=== PATIENT | male | born 1975 | race Caucasian/White ===

== ENCOUNTER → 2016-12-07 | Outpatient (CLI) | payer MEDICAID ==
[2016-12-07 09:51] LABS: CHLORIDE,CL 106 mmol/L (98-110); SODIUM,NA 138 mmol/L (136-146)
== END ==
LOC: MW.CHFP 09:06
PROVIDERS: ATTEND Physician Assistant
DX: R10.13 Epigastric pain (principal)
CPT/HCPCS: 36415; 80053; 85025; 85652; 87338

== ENCOUNTER → 2016-12-08 | Outpatient (CLI) | payer MEDICAID ==
[~2016-12-08] MED LIST: Iopamidol 755 MG/ML 500 ML Multipack Bottle IVPUSH STA
--- NOTE | 2016-12-08 15:31 | CT ---
CT of the abdomen and pelvis with contrast. HISTORY: Epigastric pain TECHNIQUE: Axial CT images were obtained of the abdomen and pelvis following administration of 100 m L of Isovue-370 without complication. Coronal and sagittal reconstructions obtained. FINDINGS: The lung bases are clear, no pleural effusion. The liver, spleen, adrenal glands, and pancreas appear normal. Gallbladder is normal. No bulky retro peritoneal lymphadenopathy or abdominal ascites. The kidneys enhance and function symmetrically with out evidence of obstructive uropathy. The large and small bowel are normal in caliber without evidence of obstruction. There is no pericol onic inflammation or stranding. The appendix appears normal. There is no bulky pelvic lymphadenopath y or free pelvic fluid. The urinary bladder is mostly decompressed. No suspicious osseous abnormalit ies identified. IMPRESSION: Unremarkable CT abdomen and pelvis.
== END ==
LOC: MW.DI 12:52
PROVIDERS: ATTEND Physician Assistant
DX: R10.13 Epigastric pain (principal)
CPT/HCPCS: 74177; 74177-26; 87338

== ENCOUNTER → 2017-01-07 | Outpatient (CLI) | payer MEDICAID ==
[2017-01-07 14:59] LABS: CHLORIDE,CL 106 mmol/L (98-110); SODIUM,NA 141 mmol/L (136-146)
== END ==
LOC: MW.CHFP 14:04
PROVIDERS: ATTEND Physician Assistant
DX: A04.8 Other specified bacterial intestinal infections (principal)
CPT/HCPCS: 36415; 80053; 82150; 83690

== ENCOUNTER → 2017-01-10 | Outpatient (CLI) | payer MEDICAID | LOC: MW.CHFP 10:36 | PROVIDERS: ATTEND Physician Assistant | DX: A04.8 Other specified bacterial intestinal infections (principal) | CPT/HCPCS: 87338 ==

== ENCOUNTER 2019-01-19 17:23 | Emergency (ER) | payer MEDICAID ==
[2019-01-19] MEDS ORDERED: Sodium Chloride 0.9% 1,000 ML IV ONE (19:09)
--- NOTE | 2019-01-19 19:09 | EDM.PDOC ---
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 Past medical history: As per history of present illness and as reviewed below otherwise noncontributory. Surgical history: As per history of present illness and as reviewed below otherwise noncontributory. Social history: No reported history of drug or alcohol abuse. Family history: As per history of present illness and as reviewed below otherwise noncontributory. Physical exam: HEENT: Atraumatic, normocephalic, pupils reactive, negative for conjunctival pallor or scleral icterus, mucous membranes moist, throat clear, neck supple, nontender, trachea midline. Lungs: Clear to auscultation, breath sounds equal bilaterally, chest nontender. Heart: S1S2, regular, negative for clicks, rubs, or JVD. Abdomen: Soft, nondistended, nontender. Negative for masses or hepatosplenomegaly. Negative for costovertebral tenderness. Pelvis: Stable nontender. Genitourinary: Deferred. Rectal: Deferred. Extremities: Atraumatic, negative for cords or calf pain. Neurovascular unremarkable. Neuro: Awake, alert, oriented. Cranial nerves II through XII unremarkable. Cerebellum unremarkable. Motor and sensory unremarkable throughout. Exam nonfocal. Diagnostics: [CBC CMP troponin EKG Chest 1 view Orthostatic vitals Therapeutics: normal saline Lifestyle modifications i.e. good diet decrease monster drinks decrease smoking likely diesel fumes from the [employer] operation all contribute ] Impression: Medical screening exam ] Worried well Definitive disposition and diagnosis as appropriate pending reevaluation and review of above. - Related Data Allergies Allergy/AdvReac Type Severity Reaction Status Date / Time No Known Allergies Allergy Verified 01/19/19 18:19 Home Meds: Home Meds . [No Known Home Meds] 01/19/19 [History] Past Medical History HEENT History: Reports: None Cardiovascular History: Reports: None Respiratory History: Reports: None Gastrointestinal History: Reports: None Genitourinary History: Reports: None Musculoskeletal History: Reports: None Neurological History: Reports: None Psychiatric History: Reports: None Endocrine/Metabolic History: Reports: None Hematologic History: Reports: None Immunologic History: Reports: None Oncologic (Cancer) History: Reports: None Dermatologic History: Reports: None - Infectious Disease History Infectious Disease History: Reports: Chicken Pox - Past Surgical History Head Surgeries/Procedures: Reports: None Social & Family History - Tobacco Use Smoking Status *Q: Current Every Day Smoker Years of Tobacco use: 20 Packs/Tins Daily: 0.5 - Caffeine Use Caffeine Use: Reports: Coffee, Energy Drinks - Recreational Drug Use Recreational Drug Use: No ED ROS GENERAL - Review of Systems Review Of Systems: See Below ED EXAM, GENERAL - Physical Exam Exam: See Below Course - Vital Signs Last Recorded V/S: Last Vital Signs Temp 98.1 F 01/19/19 18:13 Pulse 67 01/19/19 20:04 Resp 18 01/19/19 20:04 BP 128/77 01/19/19 20:04 Pulse Ox 100 01/19/19 20:04 Orthostatic Blood Pressure [ 124/82 Standing] Orthostatic Blood Pressure [ 123/81 Sitting] Orthostatic Blood Pressure [ 128/77 Supine] - Orders/Labs/Meds Orders: Active Orders 24 hr Category Date Time Status EKG Documentation Completion [RC] STAT Care 01/19/19 19:07 Active Orthostatic Vital Signs [RC] ASDIRECTED Care 01/19/19 19:10 Active Labs: Laboratory Tests 01/19/19 01/19/19 01/19/19 Range/Units 18:55 18:55 19:40 WBC 9.51 (4.0-11.0) K/uL RBC 5.16 (4.50-5.90) M/uL Hgb 15.6 (13.0-17.0) g/dL Hct 44.3 (38.0-50.0) % MCV 85.9 (80.0-98.0) fL MCH 30.2 (27.0-32.0) pg MCHC 35.2 (31.0-37.0) g/dL RDW Std Deviation 41.7 (28.0-62.0) fl RDW Coeff of Jose 13 (11.0-15.0) % Plt Count 255 (150-400) K/uL MPV 9.00 (7.40-12.00) fL Neut % (Auto) 72.2 (48.0-80.0) % Lymph % (Auto) 19.5 (16.0-40.0) % [place] % (Auto) 5.3 (0.0-15.0) % Eos % (Auto) 2.7 (0.0-7.0) % Baso % (Auto) 0.3 (0.0-1.5) % Neut # (Auto) 6.9 H (1.4-5.7) K/uL Lymph # (Auto) 1.9 (0.6-2.4) K/uL [place] # (Auto) 0.5 (0.0-0.8) K/uL Eos # (Auto) 0.3 (0.0-0.7) K/uL Baso # (Auto) 0.0 (0.0-0.1) K/uL Nucleated RBC % 0.0 /100WBC Nucleated RBCs # 0 K/uL Sodium 137 (136-148) mmol/L Potassium 4.9 (3.5-5.1) mmol/L Chloride 102 (98-107) mmol/L Carbon Dioxide 28.6 (21.0-32.0) mmol/L BUN 19 H (7.0-18.0) mg/dL Creatinine 1.0 (0.8-1.3) mg/dL Est Cr Clr Drug Dosing 102.49 mL/min Estimated GFR (MDRD) > 60.0 ml/min Glucose 128 H (74-106) mg/dL Calcium 9.3 (8.5-10.1) mg/dL Total Bilirubin 0.4 (0.2-1.0) mg/dL AST 23 (15-37) IU/L ALT 28 (14-63) IU/L Alkaline Phosphatase 81 (46-116) U/L Troponin I < 0.050 (0.000-0.056) ng/mL Total Protein 7.9 (6.4-8.2) g/dL Albumin 4.3 (3.4-5.0) g/dL Globulin 3.6 (2.6-4.0) g/dL Albumin/Globulin Ratio 1.2 (0.9-1.6) Urine Color DARK YELLOW Urine Appearance SLT CLOUDY Urine pH 6.0 (5.0-8.0) Ur Specific [place] >= 1.030 (1.001-1.035) Urine Protein NEGATIVE (NEGATIVE) mg/dL Urine Glucose (UA) NEGATIVE (NEGATIVE) mg/dL Urine Ketones NEGATIVE (NEGATIVE) mg/dL Urine Occult Blood NEGATIVE (NEGATIVE) Urine Nitrite NEGATIVE (NEGATIVE) Urine Bilirubin NEGATIVE (NEGATIVE) Urine Urobilinogen 0.2 (<2.0) EU/dL Ur Leukocyte Esterase NEGATIVE (NEGATIVE) Meds: Medications Discontinued Medications Generic Name Dose Route Start Last Admin Trade Name Freq PRN Reason Stop Dose Admin Sodium Chloride 1,000 mls @ 999 mls/hr 01/19/19 19:09 01/19/19 19:18 Normal Saline IV 01/19/19 20:09 Not Given STAT ONE Departure - Departure Time of Disposition: 20:10 Disposition: Home, Self-Care 01 Condition: Good Clinical Impression: Encounter for medical screening examination - Discharge Information Referrals: PCP,None [Primary Care Provider] - Forms: ED Department Discharge Additional Instructions: The following information is given to patients seen in the emergency department who are being discharged to home. This information is to outline your options for follow-up care. We provide all patients seen in our emergency department with a follow-up referral. The need for follow-up, as well as the timing and circumstances, are variable depending upon the specifics of your emergency department visit. If you don't have a primary care physician on staff, we will provide you with a referral. We always advise you to contact your personal physician following an emergency department visit to inform them of the circumstance of the visit and for follow-up with them and/or the need for any referrals to a consulting specialist. The emergency department will also refer you to a specialist when appropriate. This referral assures that you have the opportunity for follow-up care with a specialist. All of these measure are taken in an effort to provide you with optimal care, which includes your follow-up. Under all circumstances we always encourage you to contact your private physician who remains a resource for coordinating your care. When calling for follow-up care, please make the office aware that this follow-up is from your recent emergency room visit. If for any reason you are refused follow-up, please contact the [facility] emergency department at and asked to speak to the emergency department charge nurse. - My Orders Last 24 Hours: My Active Orders 01/19/19 19:07 EKG Documentation Completion [RC] STAT 01/19/19 19:10 Orthostatic Vital Signs [RC] ASDIRECTED - Assessment/Plan Last 24 Hours: My Active Orders 01/19/19 19:07 EKG Documentation Completion [RC] STAT 01/19/19 19:10 Orthostatic Vital Signs [RC] ASDIRECTED
--- NOTE | 2019-01-19 19:25 | CR ---
INDICATION: Nausea, tingling TECHNIQUE: Chest 1 view COMPARISON: None FINDINGS: Cardiovascular and mediastinum: Heart size and vasculature are normal in caliber and appearance. Lungs and pleural spaces: Lungs are clear. No sign of infiltrate or mass. No sign of pleural effusion. No pneumothorax. Bones and soft tissues: No significant findings. IMPRESSION: No acute or significant findings. Dictated by Yahir Sequeira MD @ Jan 19 2019 7:23PM Signed by Dr. Yahir Sequeira @ Jan 19 2019 7:23PM
[2019-01-19 19:26] LABS: CHLORIDE,CL 102 mmol/L (98-107); SODIUM,NA 137 mmol/L (136-148)
== END 2019-01-19 20:20 | disposition home or self-care (01) ==
LOC: MW.ED 17:23
DX: Z13.9 Encounter for screening, unspecified (principal); F17.210 Nicotine dependence, cigarettes, uncomplicated
CPT/HCPCS: 36415; 71045; 71045-26; 80053; 81003; 84484; 85025; 99283; 99283-25

== ENCOUNTER 2021-02-11 08:23 | Day surgery (SDC) | payer MEDICAID ==
[~2021-02-11 08:23] MED LIST changes: -Iopamidol 755 MG/ML 500 ML Multipack Bottle IVPUSH STA; +Lactated Ringers 1,000 ML IV SCH; +Propofol 200 MG/20 ML SDV ONE; +fentaNYL 100 MCG/2 ML SDV ONE
--- NOTE | 2021-02-11 08:46 | PCM.PREANE ---
Preanesthetic Assessment - Anesthesia/Transfusion/Family Hx Anesthesia History: Prior Anesthesia Reaction Other Type of Anesthesia Reaction Comment: "some nausea when I wake up" Family History of Anesthesia Reaction: No Transfusion History: No Prior Transfusion(s) - Physical Assessment NPO Status Date: 02/11/21 NPO Status Time: 00:01 Height: 5 ft 11 in Weight: 250 lb ASA Class: 2 Airway Class: Mallampati = 2 ROM/Head Extension: Limited/Partial Lungs: Normal Respiratory Effort Cardiovascular: Regular Rhythm - Allergies Allergies/Adverse Reactions: Allergies Allergy/AdvReac Type Severity Reaction Status Date / Time No Known Allergies Allergy Verified 02/09/21 11:43 - Anesthesia Plan Pre-Op Medication Ordered: None - Acknowledgements Anesthesia Type Planned: General Anesthesia Pt an Appropriate Candidate for the Planned Anesthesia: Yes Alternatives and Risks of Anesthesia Discussed w Pt/Guardian: Yes Pt/Guardian Understands and Agrees with Anesthesia Plan: Yes Additional Comments: npo anxiety obesity bmi 35 tob quit 1 week ago etoh hx abuse quit 1 week ago no cv problems take IBU for LBP par no questions PreAnesthesia Questionnaire HEENT History: Reports: None Cardiovascular History: Reports: Other (See Below) Other Cardiovascular History: was told he had a murmur in the past- has not been mentioned recently Respiratory History: Reports: None Gastrointestinal History: Reports: GERD, Other (See Below) Other Gastrointestinal History: currently has a "fatty liver" - has not yet made an appointment to have it checked Genitourinary History: Reports: None Musculoskeletal History: Reports: Back Pain, Chronic, Osteoarthritis Neurological History: Reports: None Psychiatric History: Reports: None Endocrine/Metabolic History: Reports: Obesity/BMI 30+ Hematologic History: Reports: None Immunologic History: Reports: None Oncologic (Cancer) History: Reports: None Dermatologic History: Reports: Other (See Below) Other Dermatologic History: rash on legs - Infectious Disease History Infectious Disease History: Reports: Chicken Pox - Past Surgical History Head Surgeries/Procedures: Reports: None HEENT Surgical History: Reports: None Cardiovascular Surgical History: Reports: None Respiratory Surgical History: Reports: None GI Surgical History: Reports: None Male Surgical History: Reports: None Endocrine Surgical History: Reports: None Neurological Surgical History: Reports: None Musculoskeletal Surgical History: Reports: Other (See Below) Other Musculoskeletal Surgeries/Procedures:: partial amputation of toe - right foot Oncologic Surgical History: Reports: None Dermatological Surgical History: Reports: None - SUBSTANCE USE Tobacco Use Status *Q: Current Every Day Tobacco User Tobacco Use Within Last Twelve Months: Cigarettes Number of Drinks Per Day: 2 Recreational Drug Use History: No - HOME MEDS Home Medications: Home Meds Acetaminophen [Tylenol Extra Strength] 500 mg PO ASDIRECTED PRN 08/15/20 [History] Betamethasone/Propylene Glyc [Betamethasone Dp Aug 0.05% Oin] 1 applic TOP ASDIRECTED PRN 08/15/20 [History] Ibuprofen 800 mg PO DAILY PRN 08/15/20 [History] carisoprodoL [Carisoprodol] 350 mg PO ASDIRECTED PRN 08/15/20 [History] buPROPion HCL [Bupropion Xl] 300 mg PO DAILY 02/09/21 [History] - CURRENT (IN HOUSE) MEDS Current Meds: Current Medications Lactated Ringer's (Ringers, Lactated) 1,000 mls @ 125 mls/hr IV ASDIRECTED BRO Discontinued Medications Fentanyl (Fentanyl 100 Mcg/2 Ml Sdv) Confirm Administered Dose 100 mcg .ROUTE .STK-MED ONE Stop: 02/11/21 07:04 Lidocaine HCl (Lidocaine 1% 5 Ml Sdv) Confirm Administered Dose 5 ml .ROUTE .STK-MED ONE Stop: 02/11/21 07:05 Propofol (Propofol 200 Mg/20 Ml Sdv) Confirm Administered Dose 400 mg .ROUTE .STK-MED ONE Stop: 02/11/21 07:04
[2021-02-11] MEDS ORDERED: Ondansetron 4 MG/2 ML SDV ONE (09:11)
--- NOTE | 2021-02-11 10:11 | PCM.OPNOTE ---
- General Post-Op/Procedure Note Date of Surgery/Procedure: 02/11/21 Operative Procedure(s): Colonoscopy. EGD with biopsies Findings: Gastritis stomach ulcer (healing) Hiatal hernia Normal colonoscopy Hemorrhoids Dictation number [id number] Pre Op Diagnosis: Abdominal pain Post-Op Diagnosis: Gastritis. stomach ulcer (healing). Hiatal hernia. Normal colonoscopy. Hemorrhoids Primary Surgeon: Ponce Bradford Pathology: Biopsies from EGD Complications: None Condition: Good
--- NOTE | 2021-02-11 10:21 | PCM.POSTAN ---
POST ANESTHESIA ASSESSMENT - MENTAL STATUS Mental Status: Alert (no anesthetic problems), Oriented - VITAL SIGNS Vital Signs: Last Vital Signs Temp 97.5 F 02/11/21 09:55 Pulse 69 02/11/21 10:16 Resp 12 02/11/21 10:16 BP 101/72 02/11/21 10:16 Pulse Ox 96 02/11/21 10:16 - RESPIRATORY Respiratory Status: Respiratory Rate WNL, Airway Patent, O2 Saturation Stable - CARDIOVASCULAR CV Status: Pulse Rate WNL, Blood Pressure Stable - GASTROINTESTINAL GI Status: No Symptoms - POST OP HYDRATION Hydration Status: Adequate & Stable
--- NOTE | 2021-02-11 10:45 | PCM48HPAN ---
Post Anesthesia Note - EVALUATION WITHIN 48HRS OF ANESTHETIC Vital Signs in Normal Range: Yes Patient Participated in Evaluation: Yes Respiratory Function Stable: Yes Airway Patent: Yes Cardiovascular Function Stable: Yes Hydration Status Stable: Yes Pain Control Satisfactory: Yes Nausea and Vomiting Control Satisfactory: Yes Mental Status Recovered: Yes Vital Signs: Last Vital Signs Temp 97.0 F 02/11/21 10:20 Pulse 69 02/11/21 10:20 Resp 14 02/11/21 10:20 BP 102/57 L 02/11/21 10:20 Pulse Ox 97 02/11/21 10:20
--- NOTE | 2021-02-11 14:30 | OR ---
SURGEON: JASE ORTIZ MD DATE OF PROCEDURE: 02/11/2021 PREOPERATIVE DIAGNOSIS: Abdominal pain. POSTOPERATIVE DIAGNOSES: 1. Gastritis. 2. Stomach ulcer appears to be healing. 3. Hiatal hernia. 4. Normal colonoscopy. 5. Hemorrhoids. PROCEDURE PERFORMED: 1. Colonoscopy. 2. Esophagogastroduodenoscopy with biopsies. PRIMARY SURGEON: Jase Ortiz MD ANESTHESIA: With Anesthesiology, EXTENT OF COLONOSCOPY: To the cecum. EXTENT OF EGD: To at least, second part of duodenum. LIMITATIONS: None. BOWEL PREP: Very good. REASON FOR PROCEDURE: The patient is a pleasant 46-year-old gentleman who has had issues with right lower quadrant pain for the past 10 years. He has been worked up in the past with ultrasound, CT, and HIDA scan, which were normal. The patient also says he has heartburn. He says he wakes up multiple times at night to drink baking soda water. He also used to have several beers per day. The patient says he has quit drinking and smoking about a week ago. PROCEDURE IN DETAIL: Physical examination was performed. The major risks and benefits associated with the procedure were explained in detail. The patient verbalized understanding and agreement of the same. The patient was connected to the appropriate monitoring devices, and IV was started. EKG, pulse oximetry, blood pressure, and capnography were monitored throughout the entire procedure. Continuous oxygen and sedation were provided by the anesthesiologist. The patient was placed in left lateral decubitus position. Sedation was began. After adequate sedation was achieved, an upper endoscope was advanced under direct visualization without difficulty in the upper GI tract. The mucosa of the esophagus, GE junction, stomach, pylorus, and at least second part of duodenum were all inspected. Duodenum did appear normal. Scope was withdrawn and got both retrograde and antegrade views of the stomach. In the antrum, the patient did have some gastritis and looked like potentially a healing ulcer. Several biopsies of this area were done. Also noted on retroflexed view, the patient did have gastritis throughout the stomach. The mucosa was slightly more friable. I did do random biopsies throughout the stomach. The patient also had sliding hiatal hernia. The hiatal hernia went from about 38 cm to 35 cm from the incisor with the GE junction being at 35 cm. The GE junction actually was slightly irregular, so I did do several biopsies of the GE junction. Scope was brought back into the stomach. The stomach was deinsufflated. Scope was brought out. There was good hemostasis at the biopsy sites. The esophagus appeared normal. Scope was completely removed, and procedure was terminated. Gloves and scopes were changed. Now, a rectal exam was performed. No rectal masses or polyps were felt. Now, a well-lubricated Olympus colonoscope was inserted into the rectum and advanced under direct visualization to the level of cecum. Cecum was identified by both visual and anatomic landmarks. Photographs were taken of the cecal cap. Scope was then slowly withdrawn in somewhat circular fashion looking at the color, texture, anatomy, and integrity of the mucosa from the cecum to the anal canal. The patient had a very good bowel prep with some very minimal retained liquid stool, which was suctioned and irrigated out for a good look at the mucosa. No masses or polyps were seen. Scope was retroflexed in the rectum, some noninflamed internal hemorrhoids. Scope was then completely removed. The procedure was terminated. ENDOSCOPIC DIAGNOSES: 1. Gastritis. 2. Stomach ulcer. 3. Hiatal hernia. 4. Normal colonoscopy with some noninflamed hemorrhoids. RECOMMENDATIONS: Followup colonoscopy in 10 years. Sooner if he develops signs and symptoms such as change in bowel habits or blood in stool. I did go over with the patient that he continue not drinking and staying off his alcohol and smoking. Also, we will give him some Carafate and he should start some omeprazole to help treat the stomach ulcer. The patient will follow up in clinic to go over the pathology. KAM / ANTONY /[id number]
== END 2021-02-11 10:40 | disposition home or self-care (01) ==
LOC: MW.SDS 08:23
PROVIDERS: ATTEND Surgery
DX: K29.50 Unspecified chronic gastritis without bleeding (principal); K22.10 Ulcer of esophagus without bleeding; K31.89 Other diseases of stomach and duodenum; K22.8 Other specified diseases of esophagus; K44.9 Diaphragmatic hernia without obstruction or gangrene; K64.8 Other hemorrhoids; E78.5 Hyperlipidemia, unspecified; F17.210 Nicotine dependence, cigarettes, uncomplicated; E66.9 Obesity, unspecified; Z68.35 Body mass index [BMI] 35.0-35.9, adult; Z86.16 Personal history of COVID-19; Z87.19 Personal history of other diseases of the digestive system
CPT/HCPCS: 43239; 45378; J2405; J2704; J3010; J7120; 00813; 88305; 88312

== ENCOUNTER 2021-12-14 19:47 | Emergency (ER) | payer MEDICAID ==
[2021-12-14] MEDS ORDERED: Lidocaine 2% Viscous Solution 15 ML UD PO ONE (21:14)
[2021-12-14] MEDS ORDERED: Benzocaine 20% Topical Spray UD MUCMEM ONE (21:14)
== END 2021-12-14 22:14 | disposition home or self-care (01) ==
LOC: MW.ED 19:47
DX: K04.7 Periapical abscess without sinus (principal); K21.9 Gastro-esophageal reflux disease without esophagitis; E66.9 Obesity, unspecified; Z68.33 Body mass index [BMI] 33.0-33.9, adult; Z79.1 Long term (current) use of non-steroidal anti-inflammatories (NSAID); Z79.899 Other long term (current) drug therapy
CPT/HCPCS: 41800; 99282; A9270

== ENCOUNTER 2022-05-05 08:54 | Day surgery (SDC) | payer MEDICAID ==
[~2022-05-05 08:54] MED LIST changes: -Propofol 200 MG/20 ML SDV ONE; -fentaNYL 100 MCG/2 ML SDV ONE
[2022-05-05] MEDS ORDERED: Lidocaine 2% 5 ML SDV ONE (09:30)
[2022-05-05] MEDS ORDERED: Propofol 200 MG/20 ML SDV ONE (09:30)
[2022-05-05] MEDS ORDERED: fentaNYL 100 MCG/2 ML SDV ONE (09:30)
== END 2022-05-05 12:04 | disposition home or self-care (01) ==
LOC: MW.SDS 08:54
PROVIDERS: ATTEND Surgery
DX: K29.70 Gastritis, unspecified, without bleeding (principal); K44.9 Diaphragmatic hernia without obstruction or gangrene; K20.90 Esophagitis, unspecified without bleeding; F41.9 Anxiety disorder, unspecified; N52.9 Male erectile dysfunction, unspecified; E78.5 Hyperlipidemia, unspecified; E66.9 Obesity, unspecified; F17.210 Nicotine dependence, cigarettes, uncomplicated; I73.9 Peripheral vascular disease, unspecified; Z79.899 Other long term (current) drug therapy; Z98.890 Other specified postprocedural states
CPT/HCPCS: 43239; J2704; J3010; 00731

== ENCOUNTER 2022-09-11 10:43 | Emergency (ER) | payer MEDICAID | END 2022-09-11 11:56 | disposition home or self-care (01) | LOC: MW.ED 10:43 | DX: L25.9 Unspecified contact dermatitis, unspecified cause (principal); E66.9 Obesity, unspecified; Z68.34 Body mass index [BMI] 34.0-34.9, adult | CPT/HCPCS: 99282; 99283 ==

== ENCOUNTER 2023-03-15 10:48 | Emergency (ER) | payer OTHER, MEDICAID ==
[2023-03-15] MEDS ORDERED: Ketorolac 10 MG Tab PO STA (11:54)
== END 2023-03-15 12:19 | disposition home or self-care (01) ==
LOC: MW.ED 10:48
DX: M25.511 Pain in right shoulder (principal); M54.6 Pain in thoracic spine; E66.9 Obesity, unspecified; Z68.27 Body mass index [BMI] 27.0-27.9, adult; Z72.0 Tobacco use
CPT/HCPCS: 72072; 73030; 99283; A9270

== ENCOUNTER 2023-05-18 00:51 | Emergency (ER) | payer MEDICAID, OTHER ==
[2023-05-18] MEDS ORDERED: Silver Sulfadiazine 1% Crm 400 GM Jar TOP ONE (01:29)
[2023-05-18] MEDS ORDERED: traMADol 50 MG Tab PO ONE (01:30)
[2023-05-18] MEDS ORDERED: Ibuprofen 600 MG Tab PO ONE (01:30)
== END 2023-05-18 02:03 | disposition home or self-care (01) ==
LOC: MW.ED 00:51
DX: T22.212A Burn of second degree of left forearm, initial encounter (principal); T22.211A Burn of second degree of right forearm, initial encounter; X11.8XXA Contact with other hot tap-water, initial encounter
CPT/HCPCS: 99283; A9270